=== PATIENT | female | born 1955 | race Caucasian/White ===

== ENCOUNTER → 2016-09-17 | Outpatient (CLI) | payer BC ==
--- NOTE | 2016-09-17 16:24 | KCIC ---
PROCEDURE Thyroid ultrasound. HISTORY Cyst on thyroid. COMPARISON None. TECHNIQUE Real-time ultrasound imaging of the thyroid gland is performed. FINDINGS All measurements in length, AP, and transverse dimensions, respectively. The right thyroid lobe measures 5.6 x 1.8 x 2 cm. In the mid right thyroid lobe there is a heterogeneous solid nodule with increased internal vascularity measuring 22 x 17 x 15 millimeters. The isthmus is normal. The left thyroid lobe measures 3.9 x 2.1 x 1.5 cm. There is a mixed cystic and solid nodule, predominantly cystic in the mid to inferior left thyroid lobe that measures 26 x 13 x 16 millimeters. There is a solid nodule with small cystic components anterior to the other nodule that measures 19 x 7 x 12 millimeters. IMPRESSION 1. Recommend ultrasound-guided FNA of the dominant solid nodule in the mid right thyroid lobe. 2. Recommend ultrasound follow-up of the left thyroid nodules in 6 months. Electronically signed by: Omid Osei MD (Sep 17, 2016 16:22:40)
== END | disposition home or self-care (01) ==
LOC: KCIC US 15:28
PROVIDERS: ATTEND Family Medicine
DX: E04.1 Nontoxic single thyroid nodule (principal)
CPT/HCPCS: 76536

== ENCOUNTER → 2016-10-02 | Outpatient (CLI) | payer BC ==
[~2016-10-02] VITALS: Ht 171.4 cm; Wt 54.4 kg
[~2016-10-02] MED LIST: ATOR20TA58 PO; BUDE3CAP15 PO; CA C1TAB38 PO; CITA10TA4 PO; CLON0.5T3 PO; DILT240C2 PO; HYDR200T5 PO; LISI10TA2 PO; METO25TA9 PO
[2016-10-02 14:04] VITALS: BP 143/61
--- NOTE | 2016-10-02 15:31 | RAD ---
EXAM: Ultrasound-guided fine-needle aspiration of a right thyroid nodule. HISTORY: Right thyroid nodule. Fine-needle aspiration is requested. COMPARISON: None. FINDINGS: The procedure along with its risks and benefits were explained to the patient. She agreed to proceed. A timeout procedure was performed. Sonographic images of the thyroid gland again demonstrate heterogeneous solid nodule in the right thyroid lobe. The overlying skin was sterilely prepped and infiltrated with 1% lidocaine for local anesthesia. Under ultrasound guidance, 4 passes were made into the nodule using 25-gauge needles. Instrumentation was withdrawn and a sterile dressing placed. There were no immediate complications. IMPRESSION: 1. Successful ultrasound-guided fine aspiration of a right thyroid nodule.
--- NOTE | 2016-10-03 17:36 | PATHOLOGY ---
CYTOPATHOLOGY REPORT CLINICAL HISTORY: Right thyroid nodule. SPECIMEN(S) RECEIVED: A.Fine needle aspiration, Right thyroid FINAL DIAGNOSIS: Right thyroid nodule fine needle aspiration: - [place] category: Benign - Clusters of thyroid follicular cells, colloid, and blood identified. COMMENT: The findings are consistent with an adenomatous (colloid) nodule. (JPM:; d/t: 10/03/16) PATHOLOGIST: Hernan Do M.D. REPORT ELECTRONICALLY SIGNED BY: Hernan Do M.D. DATE/TIME: 10/03/2016 17:35 GROSS PATHOLOGY: A. Fine needle aspiration, Right thyroid: The specimen is labeled "Michelle Antonio" and consists of two fixed slides, two air dried slides, two H and E slides. Thirty mL of clear pink fluid in CytoLyt from the needle rinse is also submitted and One ThinPrep slide and a cell block were prepared from this material. (clt 10.02.2016) MEDICAL TRANSLATOR(S): YASIR Loyd([facility]) INITIAL CPT CODE(S): A; 39422, 38670 Professional services performed by [facility] [place] [address] Technical services performed by [facility] at [address] [place] [address], [address], [place] [address]. CC:Dr. Rios PATIENT: MICHELLE ANTONIO /AGE: 208/30/1955 (Age: 61) SEX: M PATIENT #: [id number] ALT CASE #: SPECIMEN COLLECTION DATE: 10/02/2016 SPECIMEN RECEIVED DATE: 10/02/[address] [facility] [address] [place] [address], [address] [place] [address] PHONE: [phone] DIRECTOR: Michael Dean M.D. * * * END OF REPORT * * *
== END | disposition home or self-care (01) ==
LOC: US 13:25
PROVIDERS: ATTEND Family Medicine
DX: E04.1 Nontoxic single thyroid nodule (principal)
CPT/HCPCS: 76942; 88173; 88305

== ENCOUNTER → 2017-01-06 | Outpatient (CLI) | payer BC ==
[2016-10-02 14:04] VITALS: BP 143/61
--- NOTE | 2017-01-06 14:43 | KCIC ---
MR of the left ankle and MRI of the left foot HISTORY: Peroneal tendon tear. Diffuse pain since June. History of fracture. Left ankle Peroneal tendons are intact. Anterior talofibular ligament and calcaneofibular ligament are poorly defined, likely due to scarring from prior injury. The posterior talofibular ligament is intact. Anterior inferior tibiofibular ligament intact. The posterior tibial and flexor tendons are intact. No acute medial ligament tear. Anterior tibial and extensor tendons are intact. Achilles tendon is intact. No acute plantar fasciitis. Subtalar joints are patent. Tarsal sinus intact. Talar dome intact. Small tibiotalar and posterior subtalar joint effusions Mild bone marrow edema within the lateral navicular bone. There is a fracture of the superolateral navicular bone. This is likely not acute, with well-defined margin and apparent at least partial cortication. No displacement. Small fracture of the distal lateral corner of the distal calcaneus, age indeterminate. Left foot Transverse fracture at the base of the fifth metatarsal. There is a separate fracture involving the proximal tubercle of the fifth metatarsal. No gross displacement. Only mild marrow edema and a nonacute etiology is favored. Fractures of the navicular and the distal lateral calcaneus are redemonstrated. Lisfranc complex is intact. Tarsometatarsal joint alignment is intact. The visualized tendons in the foot are intact. No significant tendon sheath fluid. IMPRESSION: 1. Fracture involving the superolateral navicular bone. Fracture involving the distal lateral aspect of the calcaneus. Fractures involving the proximal shaft of the proximal tubercle of the fifth metatarsal. These are nondisplaced and likely posttraumatic. Subacute/chronic etiology is favored over acute etiology, given the well-defined nature of the fractures and presence of only mild edema. 2. Anterior talofibular ligament and calcaneofibular ligament scarring from previous injury. Electronically signed by: Eduin Osborne MD (01/06/2017 2:40 PM)
== END | disposition home or self-care (01) ==
LOC: KCIC MRI 12:52
PROVIDERS: ATTEND Podiatrist Foot & Ankle Surgery
DX: S96.912A Strain of unspecified muscle and tendon at ankle and foot level, left foot, initial encounter (principal); X58.XXXA Exposure to other specified factors, initial encounter; Y93.89 Activity, other specified; Y92.89 Other specified places as the place of occurrence of the external cause; Y99.8 Other external cause status
CPT/HCPCS: 73718; 73721

== ENCOUNTER → 2017-07-02 | Outpatient (CLI) | payer BC ==
[2016-10-02 14:04] VITALS: BP 143/61
[~2017-07-02] MED LIST changes: +METO-239 PO; -METO25TA9 PO
--- NOTE | 2017-07-02 16:55 | KCIC ---
Indication: Multinodular thyroid. The study is performed for follow-up. Comparison is made with prior exam from 09/17/2016. The right lobe of the thyroid measures 6.1 x 2.0 x 2.0 cm and the left lobe measures 5.0 x 2.1 x 1.9 cm. The dominant solid nodule noted in the right lobe of the thyroid measures 2.5 x 1.6 x 2.1 cm compared with 2.2 x 1.7 x 1.5 cm on prior. The septated cystic mass in the left lobe measures 2.4 x 1.4 x 1.3 cm compared with 2.6 x 1.3 x 1.6 cm on prior. No new mass is detected. IMPRESSION: Slight increase in size of the dominant solid nodule right lobe of the thyroid when compared with exam from 09/17/2016. Patient reportedly has undergone prior right thyroid biopsy in September 2016 with a benign result, per the patient. Continued follow-up is recommended. Electronically signed by: Akash Rodriguez MD (07/02/2017 4:51 PM) [id number]
== END | disposition home or self-care (01) ==
LOC: KCIC US 15:24
PROVIDERS: ATTEND Internal Medicine
DX: E04.2 Nontoxic multinodular goiter (principal)
CPT/HCPCS: 76536

== ENCOUNTER → 2017-08-14 | Outpatient (CLI) | payer BC | END | disposition home or self-care (01) | LOC: US 12:33 | DX: E04.1 Nontoxic single thyroid nodule (principal) | CPT/HCPCS: 60300; 76942 ==

== ENCOUNTER → 2018-01-12 | Outpatient (CLI) | payer BC | END | disposition home or self-care (01) | LOC: KCIC US 09:44 | DX: E04.2 Nontoxic multinodular goiter (principal) | CPT/HCPCS: 76536 ==

== ENCOUNTER → 2020-03-27 | Outpatient (CLI) | payer MEDICARE ==
[2016-10-02 14:04] VITALS: BP 143/61
[~2020-03-27] MED LIST changes: +CLON-77 PO; -CLON0.5T3 PO
--- NOTE | 2020-03-27 15:53 | RAD ---
EXAM: ULTRASOUND-GUIDED THYROID FINE-NEEDLE ASPIRATION. HISTORY: Thyroid nodule. Ultrasound-guided biopsy is requested. In this procedure, the nodule at the mid thyroid lobe was targeted for biopsy. FINDINGS: The procedure along with its risks and benefits were explained to the patient. Patient agreed to proceed. A timeout procedure was performed. Sonographic images of the thyroid gland were obtained. The solid target nodule in the mid left thyroid lobe was adequately visualized for biopsy. It is more superficial. The overlying skin was sterilely prepped and infiltrated with 1% lidocaine for local anesthesia. Under ultrasound guidance, 4 aspirates were obtained using 25-gauge needles. These were hand delivered to pathology who determined them adequate for diagnosis. A sterile dressing was placed. There were no immediate complications. IMPRESSION: 1. Successful ultrasound-guided fine-needle aspiration of the superficial mid left thyroid nodule. EXAM: ULTRASOUND-GUIDED THYROID FINE-NEEDLE ASPIRATION. HISTORY: Thyroid nodule. Ultrasound-guided biopsy is requested. In this procedure, the nodule deep and inferior was targeted for biopsy. FINDINGS: The procedure along with its risks and benefits were explained to the patient. They agreed to proceed. A timeout procedure was performed. Sonographic images of the thyroid gland were obtained. The solid target nodule in the deep inferior left thyroid lobe was adequately visualized for biopsy. The overlying skin was sterilely prepped and infiltrated with 1% lidocaine for local anesthesia. Under ultrasound guidance, 4 aspirates were obtained using 25-gauge needles. These were hand delivered to pathology who determined them adequate for diagnosis. A sterile dressing was placed. There were no immediate complications. IMPRESSION: 1. Successful ultrasound-guided fine-needle aspiration of the deep and inferior left thyroid nodule. Electronically signed by: Valentina Price MD (03/27/2020 3:50 PM) [id number]
--- NOTE | 2020-03-28 13:08 | PATHOLOGY ---
Note [facility] Accession Number: [id number] TESTS RESULT FLAG UNITS REF RANGE LAB Clinician Provided Cytology Information No. of containers..01 Other (Miscellaneous) Source: LEFT INFER THYROID DIAGNOSIS: LEFT INFER THYROID INADEQUATE, INSUFFICIENT CELLS FOR STUDY. [place] CATEGORY I. NONDIAGNOSTIC: POORLY ACELLULAR SPECIMEN. THIS INTERPRETATION INCLUDES EVALUATION OF A CELL BLOCK. COMMENT, MOSTLY BLOOD AND RARE THYROID FOLLICULAR CELLS. THE MATERIAL ASPIRATED MAY NOT BE PUBLIC RELATIONS INTERN. SUGGEST CLINICAL CORRELATION. Signed out by: Ozzy Ceballos MD, Pathologist NPI- [id number] Performed by: Mary Monroe, Correspondence Representative ([facility]) Gross description: 01 30ML, CLEAR RED, 2F 2A 2HE /LCS 03/27/2020 1817 Local FLAG LEGEND: L-Low Normal,H-High Normal,LL-Alert Low,HH-Alert High <-Panic Low,>-Panic High,A-Abnormal,AA-Critical Abnormal Performed at: [facility] [employer] [facility] [address] [place] [address] Daniel Guillory MD, [place] [facility] [address] Michael Dean MD, Specimen Comment: A courtesy copy of this report has been sent to [phone], [phone] Specimen Comment: [phone], Specimen Comment: Report sent to ,DR ALVA / DR WALKER Specimen Comment: A duplicate report has been generated due to demographic updates. Performed at: [address], [place], [place] [id number] MD Daniel Guillory MD Phone: [phone]
--- NOTE | 2020-03-28 13:08 | PATHOLOGY ---
Note [facility] Accession Number: [id number] TESTS RESULT FLAG UNITS REF RANGE LAB Clinician Provided Cytology Information No. of containers..01 Other (Miscellaneous) Source: LEFT MID THYROID DIAGNOSIS: LEFT MID THYROID INADEQUATE, INSUFFICIENT CELLS FOR STUDY. [place] CATEGORY I. NONDIAGNOSTIC: HYPOCELLULAR SMEAR THIS INTERPRETATION INCLUDES EVALUATION OF A CELL BLOCK. COMMENT, POORLY CELLULAR SMEAR WITH FEW THYROID FOLLICULAR CELLS PRESENT. 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 SUGGEST CLINICAL CORRELATION. Signed out by: Ozzy Ceballos MD, Pathologist NPI- [id number] Performed by: Mary Monroe, Compo Caster ([facility]) Gross description: 30ML, CLEAR RED, 2F 2D 2HE /LCS 03/27/2020 1815 Local FLAG LEGEND: L-Low Normal,H-High Normal,LL-Alert Low,HH-Alert High <-Panic Low,>-Panic High,A-Abnormal,AA-Critical Abnormal Performed at: [facility] [address] [place] [address] Daniel Guillory MD, [place] [facility] [address] Michael Dean MD, Specimen Comment: A courtesy copy of this report has been sent to [phone], [phone]- Specimen Comment: [phone], Specimen Comment: Report sent to ,DR ALVA / DR WALKER Specimen Comment: A duplicate report has been generated due to demographic updates. Performed at: [address], [place], [place] [id number] MD Daniel Guillory MD Phone: [phone]
== END | disposition home or self-care (01) ==
LOC: US 13:25
PROVIDERS: ATTEND Surgery
DX: E04.1 Nontoxic single thyroid nodule (principal); Z79.899 Other long term (current) drug therapy
CPT/HCPCS: 10005; 76942; 88173; 88305